=== PATIENT | female | born 1960 | race Asian ===

== ENCOUNTER 2018-04-23 23:24 | Emergency (ER) | payer OTHER ==
[2018-04-24 01:08] LABS: ABS Basophils 0.1 10^3/ul (0-0.2); ABS Eosinophils 0.2 10^3/ul (0-0.6); ABS Lymphocytes 2.6 10^3/ul (1.0-4.8); ABS Monocytes 0.7 10^3/ul (0-0.8); ABS Neutrophils 4.5 10^3/ul (1.5-7.7); ABS Nucleated RBC 0 10^3/ul; Eosinophil % 2.8 %; Hematocrit 38 % (35-47); Hemoglobin 12.4 g/dl (12.0-16.0); Mean Corpuscular HGB Conc 32 g/dl (31-36); Mean Corpuscular Hemoglobin 28 pg (27-31); Mean Corpuscular Volume 86 fL (80-97); Mean Platelet Volume 8.8 fL (7.4-10.4); Nucleated Red Blood Cells % 0; Platelet Count 193 10^3/ul (150-450); Red Blood Count 4.47 10^6/ul (4.00-5.40); Red Cell Distribution Width 15 % (10.5-15); White Blood Count 8.1 10^3/ul (3.5-10.8)
[2018-04-24 01:25] LABS: Albumin 3.7 g/dL (3.2-5.2); Albumin/Globulin Ratio 1.2 (1-3); BUN/Creatinine Ratio 15.9 (8-20); Calcium 8.4 mg/dL (8.6-10.3); EGFR African American 34.8 (>60); EGFR Non-African American 28.7 (>60); Globulin 3.1 g/dL (2-4); Potassium 4.1 mmol/L (3.5-5.0); Total Bilirubin 0.3 mg/dL (0.2-1.0); Total Protein 6.8 g/dL (6.4-8.9)
[2018-04-24 05:27] VITALS: BP 127/89
--- NOTE | 2018-04-24 05:49 | ED ---
Influenza-Like Illness - HPI Summary HPI Summary: The patient is a 57 y/o F presenting to [facility] with a chief complaint of flu- like symptoms for the last 5 days. She complains of a productive cough, SOB, and nasal congestion. She is from [facility] and speaks [place], so her daughter helps translate. - History of Current Complaint Chief Complaint: EDFluSymptoms Time Seen by Provider: 04/24/18 02:49 Hx Obtained From: Patient, Family/Glassie - daughter Onset/Duration: Sudden Onset, Lasting Days - five, Still Present Severity: Moderate Associated Signs & Symptoms: Cough - production, Nasal Congestion - Allergy/Home Medications Allergies/Adverse Reactions: Allergies Allergy/AdvReac Type Severity Reaction Status Date / Time No Known Allergies Allergy Verified 01/19/16 16:49 PMH/Surg Hx/FS Hx/Imm Hx Endocrine/Hematology History: Reports: Hx Thyroid Disease Denies: Hx Diabetes Cardiovascular History: Reports: Hx Hypertension Respiratory History: Reports: Hx Asthma History: Denies: Hx Renal Disease - Cancer History Hx Chemotherapy: No Hx Radiation Therapy: No - Surgical History Surgery Procedure, Year, and Place: Tubal ligation Infectious Disease History: Unable to Obtain/Confirm Infectious Disease History: Denies: Hx Clostridium Difficile, Hx Hepatitis, Hx Human Immunodeficiency Virus (HIV), Hx of Known/Suspected MRSA, Hx Shingles, Hx Tuberculosis, Hx Known/ Suspected VRE, Hx Known/Suspected VRSA, History Other Infectious Disease, Traveled Outside the [place] in Last 30 Days - Family History Known Family History: Positive: Cardiac Disease - Social History Alcohol Use: None Substance Use Type: Reports: None Hx Tobacco Use: No Smoking Status (MU): Former Smoker Review of Systems Positive: Other - nasal congestion Positive: Shortness Of Breath, Cough - productive All Other Systems Reviewed And Are Negative: Yes Physical Exam - Summary Physical Exam Summary: Appearance: Well-appearing, Well-nourished, lying in bed comfortably Skin: Warm, dry, no obvious rash Eyes: sclera anicteric, no conjunctival pallor ENT: mucous membranes moist, pharynx appears normal Neck: Supple, nontender Respiratory: Clear to auscultation, no signs of respiratory distress Cardiovascular: Normal S1, S2. No murmurs. Normal distal pulses in tibial and radial bilaterally. Abdomen: Soft, nontender, normal active bowel sounds present Musculoskeletal: Normal, Strength/ROM Intact Neurological: A&Ox3, awake and alert, mentation is normal, speech is fluent and appropriate Psychiatric: affect is normal, does not appear anxious or depressed Triage Information Reviewed: Yes Vital Signs On Initial Exam: Initial Vitals Temp Pulse Resp BP Pulse Ox 98.3 F 75 20 123/81 100 04/23/18 23:39 04/23/18 23:39 04/23/18 23:39 04/23/18 23:39 04/23/18 23:39 Vital Signs Reviewed: Yes Diagnostics - Vital Signs Vital Signs Temp Pulse Resp BP Pulse Ox 04/24/18 05:27 97.3 F 72 22 127/89 98 04/24/18 05:24 127/89 04/24/18 05:00 71 94 04/24/18 04:39 69 101/68 96 04/24/18 04:09 68 107/61 99 04/24/18 04:00 70 96 04/24/18 03:39 71 123/78 98 04/24/18 03:09 68 133/82 99 04/24/18 03:08 98.6 F 67 99 04/23/18 23:39 98.3 F 75 20 123/81 100 - Laboratory Lab Results: Lab Results 04/24/18 04/24/18 04/24/18 Range/Units 01:03 01:03 01:03 WBC 8.1 (3.5-10.8) 10^3/ul RBC 4.47 (4.00-5.40) 10^6/ul Hgb 12.4 (12.0-16.0) g/dl Hct 38 (35-47) % MCV 86 (80-97) fL MCH 28 (27-31) pg MCHC 32 (31-36) g/dl RDW 15 (10.5-15) % Plt Count 193 (150-450) 10^3/ul MPV 8.8 (7.4-10.4) fL Neut % (Auto) 55.5 % Lymph % (Auto) 32.0 % [place] % (Auto) 8.9 % Eos % (Auto) 2.8 % Baso % (Auto) 0.8 % Absolute Neuts (auto) 4.5 (1.5-7.7) 10^3/ul Absolute Lymphs (auto) 2.6 (1.0-4.8) 10^3/ul Absolute Monos (auto) 0.7 (0-0.8) 10^3/ul Absolute Eos (auto) 0.2 (0-0.6) 10^3/ul Absolute Basos (auto) 0.1 (0-0.2) 10^3/ul Absolute Nucleated RBC 0 10^3/ul Nucleated RBC % 0 Sodium 138 (135-145) mmol/L Potassium 4.1 (3.5-5.0) mmol/L Chloride 109 (101-111) mmol/L Carbon Dioxide 21 L (22-32) mmol/L Anion Gap 8 (2-11) mmol/L BUN 29 H (6-24) mg/dL Creatinine 1.82 H (0.51-0.95) mg/dL Est GFR ( Amer) 34.8 (>60) Est GFR (Non-Af Amer) 28.7 (>60) BUN/Creatinine Ratio 15.9 (8-20) Glucose 118 H (70-100) mg/dL Lactic Acid 0.8 (0.5-2.0) mmol/L Calcium 8.4 L (8.6-10.3) mg/dL Total Bilirubin 0.30 (0.2-1.0) mg/dL AST 21 (13-39) U/L ALT 32 (7-52) U/L Alkaline Phosphatase 87 (34-104) U/L Troponin I 0.00 (<0.04) ng/mL Total Protein 6.8 (6.4-8.9) g/dL Albumin 3.7 (3.2-5.2) g/dL Globulin 3.1 (2-4) g/dL Albumin/Globulin Ratio 1.2 (1-3) Result Diagrams: 04/24/18 01:03 04/24/18 01:03 Lab Statement: Any lab studies that have been ordered have been reviewed, and results considered in the medical decision making process. - Radiology CXR Radiology Interpretation Completed By: Radiologist Summary of Radiographic Findings: No acute process. ED physician has reviewed this report. - EKG 0032 Cardiac Rate: NL - 67 BPM EKG Rhythm: Sinus Rhythm Summary of EKG Findings: NSR at 67BPM, P waves, QRS complex, and T waves are within normal limits, T waves and intervals are normal, no ischemic changes. This is a normal EKG. Flu Symptom Course/Dx - Course Course Of Treatment: The patient is a 57 y/o with a chief complaint of flu-like symptoms for the last 5 days. She complains of a productive cough, SOB, and nasal congestion. She is from [facility] and speaks [place], so her daughter helps translate. We attempted to use a auto damage adjuster, but no one was available at [id number]. The service called us at the hospital 20 minutes later, but no one could translate. Upon physical exam, the patient exhibits no acute abnormalities. Bloodwork reveals slightly elevated BUN and creatinine. EKG is normal. CXR reveals no acute process. She is diagnosed with acute bronchitis. She will be discharged home with prescription for Tussionex. He agrees with this plan and understands the need for return to the ED for any new or worsening symptoms. - Diagnoses Differential Diagnosis/HQI/PQRI: Positive: Bronchitis, Influenza, Pneumonia, Upper Respiratory Infection Provider Diagnoses: Bronchitis Discharge - Sign-Out/Discharge Documenting (check all that apply): Patient Departure - Patient will be discharged home. Patient Received Moderate/Deep Sedation with Procedure: No - Discharge Plan Condition: Good Disposition: HOME Prescriptions: Hydrocodone/Chlorphen P-Stirex [Tussionex Pennkinetic Susp] 5 ml PO BID PRN #[email or web address] MDD 10 ml PRN Reason: Cough Patient Education Materials: Acute Bronchitis (ED) Referrals: Emmy Bradshaw MD [Primary Care Provider] - 1 Week (if no better) - Billing Disposition and Condition Condition: GOOD Disposition: Home - Attestation Statements Document Initiated by Immanuel: Yes Documenting Scribe: Cindy Le Provider For Whom Immanuel is Documenting (Include Credential): MD Fabian Cragiibneo Attestation: Cindy Yarbrough scribed for Dr. Venkata Hyatt MD on 04/25/18 at 0450. Scribe Documentation Reviewed: Yes Provider Attestation: The documentation as recorded by the Cindy bradley accurately reflects the service I personally performed and the decisions made by me, Dr. Venkata Hyatt MD Status of Scribe Document: Viewed
== END 2018-04-24 05:26 | disposition home or self-care (01) ==
LOC: ED 23:24
DX: J20.9 Acute bronchitis, unspecified (principal); Z87.891 Personal history of nicotine dependence
CPT/HCPCS: 36415; 71046; 80053; 83605; 84484; 85025; 87040; 93005; 99283